=== PATIENT | female | born 1990 | race Caucasian/White ===

== ENCOUNTER 2016-11-14 14:41 | Inpatient (IN) | payer BC ==
[~2016-11-14] VITALS: Ht 170.2 cm; Wt 86.2 kg
--- NOTE | ~2016-11-14 | DS ---
Unit #: [id number] #: [id number] Patient: ANIKET JOHNSON [id number] [facility] [address] [place] [address] [id number] I MR#: [id number] NAME: ANIKET JOHNSON. ROOM: [facility] Age: 26 Sex: F Admission Date: 11/15/2016 : 1990 Discharge Date: 11/19/2016 Attending Physician: Juan Marie M.D. Primary Care Physician: Swetha Baltazar A.P.R.N. DISCHARGE SUMMARY REASON FOR ADMISSION Depression, anxiety, and suicidal ideation. DIAGNOSTIC STUDIES LABORATORY RESULTS: Unremarkable. HOSPITAL COURSE The patient was admitted to inpatient unit on 11/15/2016 and discharged on 11/19/2016. The patient was treated on the inpatient unit with chemical dependency group, expressive therapy, medication management, psychotherapy, and psychoeducation. The patient participated in program, maintain safe behavior, showed improvement, responded well with the combination of Klonopin, Cymbalta, and * . The patient was subsequently discharged with a plan to follow up in outpatient program. DISCHARGE MEDICATIONS * 75 mg at bedtime for sleep, Cymbalta 30 mg daily for depression, Klonopin 0.5 mg t.i.d. for anxiety. The patient was given one month supply only. DISCHARGE DIAGNOSES Psychiatric: Major depressive disorder, recurrent, severe, F33.2; anxiety disorder, not otherwise specified, F40.01. Secondary diagnosis: Deferred. Medical diagnosis: None. Stressors: Psychosocial stressors. DISCHARGE INSTRUCTIONS The patient to follow up in outpatient clinic as per manager social work. CONDITION ON DISCHARGE The patient was pleasant and cooperative. Denied any psychotic symptom or any suicidal ideation. PROGNOSIS Guarded. DIET AND ACTIVITY As tolerated. *REPORT FAXED TO DR. MARIE'S OFFICE ON 11/20/16 FOR MEDICATION Unit #: [id number] #: [id number] Patient: ANIKET JOHNSON VERIFICATION. cd Dictated by... Juan Marie M.D. SZMarsha/ronal TD: 11/19/2016 18:08 JOB #: [id number] DISCHARGE SUMMARY Page 1 of 1 X Juan Marie MD DISCHARGE SUMMARY
--- NOTE | ~2016-11-14 | PN ---
Unit #: [id number] #: [id number] Patient: ANIKET JOHNSON [id number] [facility] [address] [place] [address] [id number] I MR#: [id number] NAME: ANIKET JOHNSON. ROOM: P252 Age: 26 Sex: F Admission Date: 11/15/2016 : 1990 Attending Physician: Juan Marie M.D. Admitting Physician: Juan Marie M.D. Primary Care Physician: Jean Arana PROGRESS NOTES DATE 11/16/2016 DISCUSSION Ms. Obrien is a 26-year-old female seen on 11/16/2016. Patient interviewed. Chart reviewed. Obtained information from nursing staff. Patient continues to report having a lot of problem with anxiety, sad, depressed, suicidal ideation panic attack. Complete review of system unremarkable. MENTAL STATUS EXAMINATION General appearance, patient dressed casually. Attention span, concentration fair. Oriented in time, place and person. Mood and affect labile. Speech monotone. Thought process concrete. Patient denied any thoughts of harming others but having suicidal ideation, anxious, nervous. Recent and remote memory poor. Insight and judgement poor. DIAGNOSES 1. Major depressive disorder, recurrent, severe. 2. Anxiety disorder NOS. ASSESSMENT/PLAN Advised to start patient on Cymbalta 30 mg daily, doxepin 75 mg at bedtime for sleep and Klonopin 0.5 mg t.i.d. for anxiety. Patient educated in detail about possible addictive nature of the medication at this time. Patient has no history of any addiction. We will closely monitor. If needed, consider further adjustment of medication. Dictated by... Trish Davis/brody TD: 11/17/2016 22:23 JOB #: [id number] Unit #: [id number] #: [id number] Patient: ANIKET JOHNSON PROGRESS NOTES Page 1 of 1 X Juan Marie MD PROGRESS NOTE
--- NOTE | ~2016-11-14 | PN ---
Unit #: [id number] #: [id number] Patient: AINKET JOHNSON [id number] [facility] [address] [place] [address] [id number] I MR#: [id number] NAME: ANIKET JOHNSON. ROOM: P252 Age: 26 Sex: F Admission Date: 11/15/2016 : 1990 Attending Physician: Juan Marie M.D. Admitting Physician: Juan Marie M.D. Primary Care Physician: Jean Arana PROGRESS NOTES DATE 11/17/2016 DISCUSSION Ms. bOrien is a 26-year-old female, seen on 11/17/2016. The patient interviewed, chart reviewed, and obtained information from the nursing staff. The patient reports that she is feeling better, decrease in anxiety, depression, compliant with medication. REVIEW OF SYSTEMS Complete review of systems unremarkable. MENTAL STATUS EXAMINATION General appearance: Patient dressed casually. Attention span and concentration, fair. Oriented in time, place, and person. Mood and affect, labile. Speech, monotone. Thought process, concrete. The patient denied any thoughts of harming self or others but still having problem with the anxiety, trouble sleeping. Recent and remote memory, poor. Insight and judgment, poor. DIAGNOSES 1. Major depressive disorder, recurrent. 2. Anxiety disorder, NOS. ASSESSMENT/PLAN Advised to continue with the current medication and therapeutic protocol, and if needed consider further adjustment of medication. Dictated by... Trish Davis/kit TD: 11/19/2016 07:52 JOB #: [id number] Unit #: [id number] #: [id number] Patient: ANIKET JOHNSON PROGRESS NOTES Page 1 of 1 X Juan Marie MD PROGRESS NOTE
--- NOTE | ~2016-11-14 | PN ---
Unit #: [id number] #: [id number] Patient: CAMILLE RIVERA [id number] [facility] [address] [place] [address] [id number] I MR#: [id number] NAME: CAMILLE RIVERA. ROOM: P252 Age: 26 Sex: F Admission Date: 11/15/2016 : 1990 Attending Physician: Juan Marie M.D. Admitting Physician: Juan Marie M.D. Primary Care Physician: Jean Arana PROGRESS NOTES DATE 11/18/2016 DISCUSSION Camille Rivera is a 26-year-old female, seen on 11/18/2016. The patient interviewed, chart reviewed, and obtained information from the nursing staff. The patient compliant, cooperative, and redirectable. Mood labile. The patient tolerating medication fairly well, overall, having a good day. REVIEW OF SYSTEMS Complete review of systems unremarkable. MENTAL STATUS EXAMINATION General appearance: Patient dressed casually. Attention span and concentration, fair. Oriented in time, place, and person. Mood and affect, labile. Speech, monotone. Thought process, concrete. The patient denied any thoughts of harming self or others. Recent and remote memory, poor. Insight and judgment, poor. DIAGNOSIS Mood disorder, NOS. ASSESSMENT/PLAN Advised to continue with the current medication, combination of Cymbalta, doxepin, and Klonopin, if needed consider further adjustment of medication. the patient to follow up in IOP level of care next week if the patient continues to do well. Dictated by... Trish Davis/kit TD: 11/20/2016 06:29 JOB #: [id number] Unit #: [id number] #: [id number] Patient: CAMILLE RIVERA PROGRESS NOTES Page 1 of 1 X Juan Marie MD PROGRESS NOTE
--- NOTE | ~2016-11-14 | HP ---
Unit #: [id number] #: [id number] Patient: CAMILLE JOHNSON [id number] [place] [address] [id number] I MR#: [id number] NAME: CAMILLE JOHNSON. ROOM: P252 Age: 26 Sex: F Admission Date: 11/15/2016 : 1990 Attending Physician: Juan Marie M.D. Admitting Physician: Juan Marie M.D. Primary Care Physician: Swetha Baltazar A.P.R.N. HISTORY AND PHYSICAL HISTORY OF PRESENT ILLNESS Camille is a 26-year-old female admitted on 11/15/2016 for depression with suicidal ideation. PAST MEDICAL HISTORY Obesity. PAST SURGICAL HISTORY 1. Appendectomy. 2. Cholecystectomy. ALLERGIES No known drug allergies. SOCIAL HISTORY Denies tobacco or illegal drug use. Does report occasional social alcohol use. FAMILY HISTORY Noncontributory. REVIEW OF SYSTEMS CONSTITUTIONAL: No fever or chills. HEENT: Denies any sore throat, ear pain or runny nose. CARDIOVASCULAR: Denies chest pain, irregular heart rhythm or palpitations. CHEST: Denies shortness of breath or cough. No hemoptysis. GASTROINTESTINAL: Denies nausea, vomiting, diarrhea or chronic constipation. ENDOCRINE: Denies history of increased thirst or urination. No recent significant weight loss or gain. GENITOURINARY: Denies dysuria, frequency, or hematuria. SKIN: Denies any rashes. HEMATOLOGIC: Denies history of increased bleeding or bruising. MUSCULOSKELETAL: Denies any hot, swollen joints. No generalized muscle pain. NEUROLOGIC: Denies problems with vision or speech. No frequent, severe headaches. No numbness, tingling or weakness in any extremities. Denies loss of bladder or bowel control. CURRENT MEDICATIONS Viibryd. PHYSICAL EXAMINATION Unit #: [id number] #: [id number] Patient: CAMILLE JOHNSON GENERAL: Alert, oriented, in no acute distress. VITAL SIGNS: Blood pressure 135/95, heart rate 94, respirations 18, temperature 98.8. HEIGHT: 5 feet 7. WEIGHT: 190 pounds. SKIN: Warm and dry without rash or lesion. HEENT: Normocephalic. TMs not viewed. Oral and nasal passages clear. Conjunctivae clear. PERRLA. EOMs intact. NECK: Supple without lymphadenopathy or thyromegaly. HEART: Regular rate and rhythm without murmur. LUNGS: Clear. ABDOMEN: Soft, nontender, without masses or hepatosplenomegaly. : Not done. EXTREMITIES: No evidence of cyanosis, clubbing or edema. Moves all without focal deficit. NEUROLOGICAL: Grossly within normal limits. Cranial Nerves: II: Visual rodriguez are intact. III, IV AND : Extraocular movements are intact. Pupils are equal, round and reactive to light. V: Facial sensation is grossly normal. VII: Facial movements and expression are normal. VIII: Auditory acuity grossly intact. IX, X: Uvula is midline. Phonation is normal. XI: Patient shrugs shoulders and turns head normally. XII: Tongue protrudes in the midline. Sensory and Motor Function: Sensory and motor sensation is grossly normal. Motor: moves all extremities well. Coordination: Gait is normal. Deep Tendon Reflexes: Intact. IMPRESSION 1. Psychiatric admission. 2. Obesity. RECOMMENDATIONS PSYCHIATRIC: Per psychiatrist. MEDICAL: No contraindication to participate in facility's activities. MEDICAL PROGNOSIS Good. MEDICAL CONDITION Stable. Dictated by... Jean Masters/brody TD: 11/15/2016 21:55 JOB #: [id number] Unit #: [id number] #: [id number] Patient: CAMILLE JOHNSON HISTORY AND PHYSICAL Page 1 of 1 X PABLO HOLLEY APRN X HISTORY AND PHYSICAL
--- NOTE | ~2016-11-14 | PA ---
Unit #: [id number] #: [id number] Patient: CAMILLE JOHNSON [id number] [place] [address] [id number] I MR#: [id number] NAME: CAMILLE JOHNSON. ROOM: P252 Age: 26 Sex: F Admission Date: 11/15/2016 : 1990 Date of Assessment: 11/16/2016 Attending Physician: Juan Marie M.D. Admitting Physician: Juan Marie M.D. Primary Care Physician: Swetha Baltazar A.P.R.N. PSYCHIATRIC ASSESSMENT INFORMANTS The patient reliability, fair informant and chart reliability, good. CHIEF COMPLAINT Depression and anxiety. HISTORY OF PRESENT ILLNESS Ms. Camille Johnson is a 26-year-old female, presented with the above-mentioned complaint. The patient reports that she is having feelings of hopelessness and worthlessness and increase in depression. Reported that she has been going to counseling once per week and needs more treatment. The patient reports that she has difficulty in getting out of the bed, no motivation. Reports she noticed an increase in depression in the last 3 weeks, decreased appetite and sleep, feeling numb, thoughts of harming herself. The patient was unable to contract for safety at this time. The patient reported multiple stressors. Reported that dad and moved with her mom. The patient reports that she has been tried on several different medication in the last 5 years. The patient reported brother is in assisted and has been addicted to heroin since age 17. The patient denied any use of any drugs or alcohol. The patient reported having lot of issues with stress at work and needing inpatient admission at this time for psychiatric stabilization. PAST PSYCHIATRIC HISTORY Remarkable for history of outpatient treatment for depression. No history of suicide attempt, but history of inpatient treatment in 2015 at [facility] and outpatient followup with [facility]. FAMILY HISTORY AND SOCIAL HISTORY Remarkable for history of addiction in brother and depression in mother. No known history of any abuse or any legal charges. MEDICAL HISTORY Unremarkable for any chronic medical illness. Musculoskeletal; muscle strength and tone, no atrophy or abnormal movement. Gait normal. MEDICATION HISTORY The patient reports that she is on Viibryd and Trintellix. Medications are not working. ALLERGIES No known drug allergies. Unit #: [id number] #: [id number] Patient: CAMILLE JOHNSON SUBSTANCE ABUSE HISTORY None. REVIEW OF SYSTEMS HEENT: Eyes, clear. Ears, nose, mouth, and throat; clear. CARDIOVASCULAR: Unremarkable. RESPIRATORY: Unremarkable. GI: Unremarkable. : Unremarkable. SKIN: Unremarkable. LYMPH NODE: Unremarkable. NEUROLOGIC: Unremarkable. ENDOCRINE: Unremarkable. HEMATOLOGIC: Unremarkable. ALLERGIC/IMMUNOLOGIC: Unremarkable. MUSCULOSKELETAL: Muscle strength and tone, no atrophy or abnormal movement. Gait normal. MENTAL STATUS EXAMINATION CONSTITUTIONAL: Measurement of vital signs; temperature 98.5, heart rate 100, and blood pressure is 142/97. Height is 5 feet 7 inches and weight 190 pounds. GENERAL APPEARANCE: The patient dressed casually. The patient did not show any facial deformity. MUSCULOSKELETAL: Please see above. PSYCHIATRIC EXAMINATION Description of speech; regular rate, normal volume, normal articulation, coherent, and spontaneous. Description of thought process, goal directed. Description of association, intact. Description of abnormal psychotic thinking; the patient denied any hallucination or delusions, but sad, depressed, anxious, and suicidal ideation. Description of the patient's judgment: Concerning everyday activity, poor. Social situation, poor. Concerning psychiatric condition, poor. Complete mental status examination; oriented in time, place, and person. Recent and remote memory, fair. Attention span and concentration, fair. Language, able to name object and repeat phrases. Fund of knowledge, aware of current event and passive vocabulary intact. Mood and affect, sad and dysphoric. Insight and judgment, fair to poor. ASSETS AND LIABILITIES Assets, the patient is articulate and able to take care of her ADL. Liability, history of depression. ADMITTING DIAGNOSES Psychiatric: Major depressive disorder, recurrent, severe, F33.2 and anxiety disorder, not otherwise specified, F40.01. Secondary diagnosis: Deferred. Medical diagnosis: None. Stressors: Psychosocial stressors. PSYCHIATRIC PLAN AND TREATMENT GOAL AND DISCHARGE PLAN 1. Advised to admit the patient on the inpatient unit. Provide safe, supportive, and structured environment. Unit #: [id number] #: [id number] Patient: CAMILLE JOHNSON 2. Ordered labs; CBC, CMP, UA, UDS, and test. 3. Advised to discontinue Trintellix and Viibryd and plan to consider alternative medication such as Cymbalta. The patient to attend all the programing on the inpatient unit, group therapy, individual therapy, and if possible family therapy. TREATMENT GOAL To attain euthymic mood, gain insight into her problem, and learn coping skills. DISCHARGE PLAN Plan to stabilize the patient and consider followup in outpatient program. ESTIMATED LENGTH OF STAY 5 to 7 days. Dictated by... Juan Marie M.D. WALT/ronal TD: 11/16/2016 20:46 JOB #: [id number] PSYCHIATRIC ASSESSMENT Page 1 of 1 X Juan Marie MD X PSYCHIATRIC ASSESSMENT
[~2016-11-14 14:41] MED LIST: AMITIZA24 MCG PO; BENTYL10 M1 PO; CYMBALTA20 MG PO; FLEXERIL PO; LORTAB 7.51 TAB 7.5/ PO; MEDROL PO; PERCOCET 51 UDTAB 5/ PO; PHENERGAN PO; PHENERGAN25 MG PO; VICODIN PO; WELLBUTRIN SR150 MG PO
[2016-11-16 09:53] LABS: BASOPHIL# 0.1 X10e3 (0-0.3); BASOPHIL% 0.7 % (0-2.5); EOSINOPHIL# 0.2 X10e3 (0-0.7); EOSINOPHIL% 1.3 % (0.0-7.0); HEMOGLOBIN 14.7 gm/dL (12.0-16.0); LYMPHOCYTE# 4.9 X10e3 (1.0-3.5); LYMPHOCYTE% 29.9 % (17.0-45.0); MEAN CELL VOLUME 87.3 FL (83-96); MEAN CORPUSCULAR HEMOGLOBIN 29.2 PG (28-34); MEAN CORPUSCULAR HGB CONC 33.4 g/dL (30-36); MEAN PLATELET VOLUME 10.4 FL (6.5-11.5); MONOCYTE# 1.3 X10e3 (0-1.0); MONOCYTE% 7.6 % (3.0-12.0); NEUTROPHIL# 9.9 X10e3 (1.5-7.1); NEUTROPHIL% 60.5 % (40-75); PLATELET COUNT 350 X10e3 (140-420); RED BLOOD COUNT 5.04 X10e (3.90-5.30); RED CELL DISTRIBUTION WIDTH 12.9 % (11.0-15.5); WHITE BLOOD COUNT 16.4 X10e3 (4.0-10.5)
[2016-11-16 10:00] LABS: DIFF IND YES
[2016-11-16 10:32] LABS: PLATELET ESTIMATE NORMAL (NORMAL); RBC NORMAL YES
[2016-11-16 10:35] LABS: ALBUMIN SERUM 3.9 g/dL (3.5-5.0); BILIRUBIN,TOTAL 0.8 mg/dL (0.2-2.0); BUN/CREATININE RATIO 15.55; CALCIUM SERUM 9.4 mg/dL (8.4-10.2); CREATININE SERUM 0.9 mg/dL (0.6-1.4); GLOM FILT RATE Estimated 87.7 mL/min (>60); POTASSIUM 4.2 mmol/L (3.5-5.1); PROTEIN TOTAL SERUM 7.6 g/dL (6.0-8.3)
[2016-11-16 10:42] LABS: THYROID STIMULATING HORMONE 3.85 uIU/ml (0.34-5.60)
[2016-11-16 10:48] LABS: FREE THYROXIN (T4) 0.83 ng/dL (0.58-1.64)
[2016-11-17 11:34] LABS: URINE APPEARANCE CLOUDY; URINE BILIRUBIN NEG (NEG); URINE BLOOD NEG (NEG); URINE COLOR YELLOW; URINE GLUCOSE NEG (NEG); URINE KETONE NEG (NEG); URINE LEUKOCYTE ESTERASE NEG (NEG); URINE NITRATE NEG (NEG); URINE PROTEIN NEG (NEG); URINE SPECIFIC GRAVITY 1.023 (1.003-1.035); URINE UROBILINOGEN 0.2 MG/DL (NEG)
[2016-11-17 11:57] LABS: AMPHETAMINE NEG (NEG); BARBITURATES NEG (NEG); BENZODIAZEPINES POS (NEG); COCAINE NEG (NEG); MARIJUANA POS (NEG); OPIATES NEG (NEG); TRICYCLIC ANTIDEPRESSANTS POS (NEG); U METHADONE NEG (NEG)
== END 2016-11-19 10:45 | disposition home or self-care (01) | DRG 885 ==
LOC: P2L 11-15 13:27
PROVIDERS: Psychiatry & Neurology Psychiatry
DX: F33.2 Major depressive disorder, recurrent severe without psychotic features (principal); R45.851 Suicidal ideations; F41.9 Anxiety disorder, unspecified; E66.9 Obesity, unspecified
CPT/HCPCS: 80053; 80307; 81003; 84439; 84443; 84703; 85025